=== PATIENT | female | born 1990 | race Hispanic/Latino ===

== ENCOUNTER → 2021-12-07 10:23 | Outpatient (CLI) | payer OTHER, SELFPAY ==
--- NOTE | 2021-12-07 | DI.ECHO.S_ITS ---
[facility]---------+ [facility] +---------+ : : [address] : [place] : : : : [id number] : : : : Phone: [phone]+ Echocardiogram Report + + :Name: WENDI GARZON Study Date: 12/07/2021 Height: 59 in : :[facility] ReadingLocation: Weight: 145 lb : : Gender: Female BSA: 1.6 m2 : :: 1990 Age: 31 yrs BP: 136/91 mmHg: :Reason For Study: HYPERTENSION : :Ordering Physician: DOREEN, : :ALEJANDRA TADEO Performed By: Aditi Briseno : :Referring: ALEJANDRA LOGAN : + + Interpretation Summary Normal sinus rhythm. Normal LV size, wall thickness, wall motion and LV systolic function. EF is 55-60%. Normal chamber sizes. No significant valvular abnormalities. No prior study available for comparison. Procedure: A two-dimensional transthoracic echocardiogram with color flow and Doppler was performed. The study quality was technically good. There is no prior echocardiogram noted for this patient. The patient was in sinus rhythm with heart rates between 71-103 bpm during the exam. Left Ventricle: The left ventricle is normal in size and wall thickness. The ejection fraction is estimated to be 55-60%. Right Ventricle: The right ventricle is normal in size and function. Atria: The left atrial size is normal. Right atrial size is normal. There is no Doppler evidence for an interatrial shunt. Mitral Valve: The mitral valve is normal in structure and function. There is trace mitral regurgitation. Aortic Valve: The aortic valve is trileaflet. The aortic valve opens well. There is no aortic valve stenosis. No aortic regurgitation is present. Tricuspid Valve: The tricuspid valve is normal in structure and function. There is mild tricuspid regurgitation. The right ventricular systolic pressure is estimated to be at least 27 mmHg based on an estimated right atrial pressure of 3 mm Hg. Pulmonic Valve: The pulmonic valve leaflets are thin and pliable; valve motion is normal. There is no pulmonic valvular regurgitation. Great Vessels: The aortic root is normal size. The dimensions of the ascending aorta are normal. The IVC is of normal diameter and collapses greater than 50% with a sniff. This suggests a low right atrial pressure of 3 mm Hg. Pericardium/ Pleura There is no pericardial effusion. There is no pleural effusion. MMode/2D Measurements & Calculations LVIDd: 4.5 cm LVOT diam: 1.9 cm LVIDs: 3.1 cm Ao root diam: 2.5 cm FS: 31.4 % asc Aorta Diam: 2.6 cm IVSd: 0.56 cm Ao Arch Diam (Prox Trans): 2.6 cm LVPWd: 0.75 cm LV soliman. diameter/BSA (cm/m^2): 2.8 LV sys. diameter/BSA (cm/m^2): 1.9 LA A2 area: 16.4 cm2 RA long axis: 4.8 cm LA A4 area: 14.1 cm2 RA area: 13.8 cm2 LA length (vol): 4.6 cm RA vol: 33.8 ml LA vol: 42.4 ml RA : 21.0 ml/m2 LA vol index: 26.4 ml/m2 IVC diam: 1.3 cm RVD1 (basal): 3.1 cm RVD2 (mid): 3.1 cm TAPSE: 1.7 cm Doppler Measurements & Calculations Ao V2 max: 171.0 cm/sec LVOT Max Milton: 100.9 cm/sec Ao V2 mean: 113.9 cm/sec LV V1 max P.1 mmHg Ao max P.7 mmHg LV V1 VTI: 19.9 cm Ao mean P.0 mmHg DUDLEY(I,D): 1.7 cm2 Ao V2 VTI: 32.1 cm DUDLEY(V,D): 1.6 cm2 sev ratio: 0.62 DUDLEY indexed to BSA (cm^2/m^2): 1.1 MV E max milton: 111.3 cm/sec TR max milton: 243.3 cm/sec MV A max milton: 62.5 cm/sec TR max P.7 mmHg MV E/A: 1.8 PA V2 max: 120.7 cm/sec Med Peak E' Milton: 11.2 cm/sec PA V2 mean: 82.4 cm/sec E/E' med: 9.9 PA mean P.1 mmHg Lat Peak E' Milton: 18.3 cm/sec PA pr(Accel): 39.6 mmHg E/E' lat: 6.1 E/e' average: 8.0 MV dec time: 0.16 sec SV(LVOT): 54.9 ml Electronically signed by: Subha Toscano M.D. on Reading Physician:12/08/2021 01:59 AM
== END ==
PROVIDERS: PCP Nurse Practitioner Family; Referring Provider Nurse Practitioner Family; Visit Provider Nurse Practitioner Family
DX: I10 Essential (primary) hypertension (principal); I07.1 Rheumatic tricuspid insufficiency
CPT/HCPCS: 93306

== ENCOUNTER → 2022-03-19 14:11 | Outpatient (CLI) | payer OTHER, SELFPAY ==
--- NOTE | 2022-03-19 | DI.NM.S_ITS ---
PROCEDURE: NM EXERCISE TREADMILL NON NUC COMPARISON: None. INDICATIONS: DYSPNEA FINDINGS: The patient exercised for 11 minutes and 16 seconds, reaching 12.8 METs, REGINA 9%. 104% of maximum predicted heart rate achieved. Appropriate BP response to exercise. No chest pain and no ST changes with exercise. No ectopy. IMPRESSION: Low risk, normal treadmill ECG only stress test with slightly above average exercise tolerance ([place] -9%). Dictated by: Gin Burrell MD on 03/19/2022 at 16:34 Approved by: Gin Burrell MD on 03/19/2022 at 16:35
[2022-03-19 15:07] LABS: COVID19 -Nasal RAPID Negative (Negative)
--- NOTE | 2022-03-19 15:39 | PM.TREADMILL ---
Cardiac Stress Test Report Referral & Results Date Patient Seen: 03/19/22 Time Patient Seen: 15:39 Requesting provider: Gin Burrell Indication: Dyspnea Rest ECG: Sinus rhythm Procedure Note: Standard Esteban protocol, 11:16 minutes, METS 11.2 Good exercise capacity, REGINA -9% Normal hemodynamic response to exercise No chest pain or anginal symptoms No significant ST changes at peak exercise No ectopy Impression: Normal exercise stress test Please note: Actual ECG tracings can be found in the PACS system.
== END ==
PROVIDERS: PCP Nurse Practitioner Family; Referring Provider Internal Medicine Cardiovascular Disease; Visit Provider Internal Medicine Cardiovascular Disease
DX: R06.00 Dyspnea, unspecified (principal); Z20.822 Contact with and (suspected) exposure to COVID-19
CPT/HCPCS: 87635; 93017

== ENCOUNTER → 2023-02-21 14:22 | Outpatient (CLI) | payer OTHER, SELFPAY | PROVIDERS: Family Provider Nurse Practitioner Family; PCP Nurse Practitioner Family; Referring Provider Nurse Practitioner Family; Visit Provider Nurse Practitioner Family | DX: R20.0 Anesthesia of skin (principal); R20.2 Paresthesia of skin | CPT/HCPCS: 95886; 95910 ==

== ENCOUNTER → 2024-10-20 12:15 | Outpatient (CLI) | payer OTHER, SELFPAY ==
--- NOTE | 2024-10-20 12:16 | DI.MG.S_ITS ---
BILATERAL DIGITAL DIAGNOSTIC MAMMOGRAM 3D/2D: 10/20/2024 CLINICAL: Mastodynia. Baseline. No prior exams were available for comparison. The breasts are heterogeneously dense, which may obscure small masses (category c / 51-75% glandular tissue). No significant masses, calcifications, or other findings are seen in either breast. IMPRESSION: INCOMPLETE: NEED ADDITIONAL IMAGING EVALUATION No mammographic evidence of malignancy. A targeted ultrasound is recommended and will immediately follow. Based on Tyrer-Cuzick model (a risk assessment model), the patient's lifetime risk is 26.0% and her 10 year risk is 2.3%. If a patient has an elevated risk, a more comprehensive evaluation should be considered and/or a referral to a genetic counselor. The [employer], [employer], and NCCN Guidelines advise the consideration of Breast MRI as an adjunct to screening mammography in patients whose Lifetime risk to develop breast cancer is 20% or higher. This exam was interpreted at Station ID: [id number]. NOTE: For mammograms, a report in lay terms will be sent to the patient. Approximately 15% of breast malignancies will not be visualized mammographically. In the management of a palpable breast mass, a negative mammogram must not discourage biopsy of a clinically suspicious lesion. Electronically Signed By: Hector Wills M.D. [facility] [place]/:10/20/2024 12:47:18 letter sent: Additional Imaging Needed ACR BI-RADS Category 0: Incomplete: Need Additional Imaging Evaluation
--- NOTE | 2024-10-20 12:16 | DI.US.S_ITS ---
LIMITED ULTRASOUND OF RIGHT BREAST AND AXILLA: 10/20/2024 CLINICAL: Focal right breast and axilla pain. Comparison is made to exam dated: 10/20/2024 mammogram - [facility]. Real-time ultrasound of the right breast 12 o'clock, and axilla regions was performed. Johnson scale images of the real-time examination were reviewed. No significant abnormalities were seen sonographically in the right breast or the right axilla in the areas of pain. IMPRESSION: NEGATIVE There is no sonographic evidence of malignancy. No mass or cyst. No suspicious lymph nodes. Return to annual mammogram screening schedule is recommended. Patient has an increased lifetime risk for breast cancer. Consider mammographic screening in one year and screening breast MRI. Exam findings were conveyed to the patient. This exam was interpreted at Station ID: [id number]. Electronically Signed By: Hector Wills M.D. [facility]/:10/20/2024 13:03:27 letter sent: Normal Exam ACR BI-RADS Category 1: Negative
== END ==
PROVIDERS: Family Provider Nurse Practitioner Family; PCP Family Medicine; Referring Provider Family Medicine; Visit Provider Family Medicine
DX: R92.2 Inconclusive mammogram (principal); N64.4 Mastodynia; R92.333 Mammographic heterogeneous density, bilateral breasts
CPT/HCPCS: 76642; 77066; G0279